=== PATIENT | male | born 1980 | race Hispanic/Latino ===

== ENCOUNTER 2017-10-10 15:27 | Emergency (ER) | payer SELFPAY ==
[~2017-10-10 15:27] MED LIST: BACTRIM DS1 TAB OR; NAPROSYN500 MG OR
[2017-10-10] MEDS ORDERED: ULTRAM50 M1 PO (18:01)
[2017-10-10] MEDS ORDERED: AMOXICILLIN500 MG PO (18:01)
[2017-10-10 18:19] VITALS: BP 131/81
== END 2017-10-10 18:20 | disposition home or self-care (01) | DRG 605 ==
LOC: ED 15:27
PROC: 0HQNXZZ Repair Left Foot Skin, External Approach (ICD-10-PCS; principal; 2017-10-10)
DX: S91.012A Laceration without foreign body, left ankle, initial encounter (principal); W22.8XXA Striking against or struck by other objects, initial encounter; Y93.89 Activity, other specified; Y92.89 Other specified places as the place of occurrence of the external cause

== ENCOUNTER 2017-10-17 14:53 | Emergency (ER) | payer SELFPAY ==
[~2017-10-17] VITALS: Ht 165.1 cm; Wt 65.0 kg
[~2017-10-17 14:53] MED LIST changes: +AMOXICILLIN500 MG PO; +ULTRAM50 M1 PO
[2017-10-17] MEDS ORDERED: BACTRIM DS1 TAB PO (19:43)
[2017-10-17 19:55] VITALS: BP 134/87
== END 2017-10-17 19:55 | disposition home or self-care (01) | DRG 950 ==
LOC: ED 14:53
DX: S91.312D Laceration without foreign body, left foot, subsequent encounter (principal); L08.9 Local infection of the skin and subcutaneous tissue, unspecified; X58.XXXD Exposure to other specified factors, subsequent encounter

== ENCOUNTER 2017-10-18 17:51 | Emergency (ER) | payer SELFPAY ==
[~2017-10-18] VITALS: Ht 165.1 cm; Wt 73.8 kg
[~2017-10-18 17:51] MED LIST changes: +BACTRIM DS1 TAB PO
[2017-10-18 18:37] VITALS: BP 121/79
== END 2017-10-18 18:41 | disposition home or self-care (01) | DRG 950 ==
LOC: ED 17:51
DX: S91.312D Laceration without foreign body, left foot, subsequent encounter (principal); Z48.01 Encounter for change or removal of surgical wound dressing

== ENCOUNTER 2017-10-19 08:05 | Emergency (ER) | payer SELFPAY ==
[~2017-10-19] VITALS: Ht 165.1 cm; Wt 68.0 kg
[2017-10-19 08:41] VITALS: BP 134/77
== END 2017-10-19 08:41 | disposition home or self-care (01) | DRG 950 ==
LOC: ED 08:05
DX: S91.002D Unspecified open wound, left ankle, subsequent encounter (principal); X58.XXXD Exposure to other specified factors, subsequent encounter

== ENCOUNTER 2017-12-23 18:12 | Emergency (ER) | payer SELFPAY ==
[~2017-12-23] VITALS: Ht 165.1 cm; Wt 75.0 kg
[2017-12-23 18:56] LABS: HEMATOCRIT 50.1 % (39.0-50.0); HEMOGLOBIN 16.8 g/dl (14.0-18.0); IMMATURE GRANULOCYTES 0.4 % (0.0-1.0); MEAN CELL VOLUME 92.4 fL CALC (80.0-100.0); MEAN CORPUSCULAR HGB CONC 33.5 g/L CALC (32.0-36.0); NEUT# 2.99 thou/uL (1.82-7.42); RED BLOOD COUNT 5.42 mill/uL (4.70-6.10); RED CELL DISTRI WIDTH 12.9 % (11.5-15.5)
[2017-12-23 19:15] LABS: ALBUMIN 4.3 g/dL (3.2-5.0); ALKALINE PHOSPHATASE 103 u/l (38-126); AMYLASE 70 u/l (30-110); ANION GAP 19 (6-22 (CALC)); BILIRUBIN, TOTAL 0.5 mg/dL (0.0-1.4); BUN 19 mg/dL (9-20); BUN/CREATININE RATIO 23 (12-20 (CALC)); CARBON DIOXIDE 25 mmol/l (22-30); CHLORIDE 103 mmol/l (95-108); CREATININE 0.8 mg/dL (0.7-1.3); GFR > 60 ML/MIN (>=60 (CALC)); GFR FOR AFR.AMER. > 60 ML/MIN (>=60 (CALC)); LIPASE 66 u/l (23-300); POTASSIUM 3.4 mmol/l (3.5-5.1); SGOT/AST 52 u/l (17-59); SGPT/ALT 58 u/l (21-72); SODIUM 143 mmol/l (137-146); TOTAL PROTEIN 8.2 g/dL (6.3-8.2)
[2017-12-23 19:51] LABS: URINE BILIRUBIN - DIPSTICK NEGATIVE (NEGATIVE); URINE BLOOD DIPSTICK SMALL (NEGATIVE); URINE COLOR YELLOW; URINE GLUCOSE - DIPSTICK NEGATIVE (NEGATIVE); URINE KETONE NEGATIVE (NEGATIVE); URINE LEUK ESTERASE NEGATIVE (NEGATIVE); URINE NITRITE - DIPSTICK NEGATIVE (Negative); URINE PH 5.5 (4.5-8.0); URINE PROTEIN - DIPSTICK NEGATIVE (NEG-TRACE); URINE SPECIFIC GRAVITY >=1.030; URINE UROBILINOGEN - DIPSTICK 0.2 E.U./dL (0.2)
[2017-12-23 19:52] LABS: URINE CLARITY CLEAR
[2017-12-23 20:00] LABS: URINE CALCIUM OXALATE CRYSTALS FEW lpf; URINE WBC 0-2 WBC/hpf (0-5)
[2017-12-23 21:30] VITALS: BP 108/73
== END 2017-12-23 21:30 | disposition home or self-care (01) | DRG 392 ==
LOC: ED 18:12
PROVIDERS: Emergency Medicine
DX: R10.12 Left upper quadrant pain (principal)
CPT/HCPCS: Q9967; S0164

== ENCOUNTER 2018-07-03 01:02 | Emergency (ER) | payer SELFPAY ==
[~2018-07-03] VITALS: Ht 165.1 cm; Wt 77.2 kg
[2018-07-03 02:00] VITALS: BP 106/74
== END 2018-07-03 02:00 | disposition home or self-care (01) | DRG 316 ==
LOC: ED 01:02
DX: R58 Hemorrhage, not elsewhere classified (principal)

== ENCOUNTER 2020-01-19 | Emergency (ER) | payer SELFPAY ==
[2020-01-19] MEDS ORDERED: CEPHALEXIN500 M1 PO ×2 (16:59→17:53)
== END 2020-01-19 18:17 | disposition home or self-care (01) | DRG 605 ==
PROC: 0HQGXZZ Repair Left Hand Skin, External Approach (ICD-10-PCS; principal; 2020-01-19)
DX: S61.012A Laceration without foreign body of left thumb without damage to nail, initial encounter (principal); W26.0XXA Contact with knife, initial encounter; Y93.G1 Activity, food preparation and clean up; Y92.89 Other specified places as the place of occurrence of the external cause; Y99.0 Civilian activity done for income or pay

== ENCOUNTER 2020-01-27 | Emergency (ER) | payer SELFPAY ==
[~2020-01-27] MED LIST changes: +CEPHALEXIN500 M1 PO
== END 2020-01-27 17:38 | disposition home or self-care (01) | DRG 950 ==
DX: S61.012D Laceration without foreign body of left thumb without damage to nail, subsequent encounter (principal); X58.XXXD Exposure to other specified factors, subsequent encounter

== ENCOUNTER 2021-03-13 14:50 | Emergency (ER) | payer SELFPAY ==
[~2021-03-13] VITALS: Ht 165.1 cm; Wt 85.0 kg
[2021-03-13 15:32] LABS: URINE BILIRUBIN - DIPSTICK NEGATIVE (NEGATIVE); URINE BLOOD DIPSTICK NEGATIVE (NEGATIVE); URINE COLOR YELLOW; URINE GLUCOSE - DIPSTICK NEGATIVE (NEGATIVE); URINE KETONE NEGATIVE (NEGATIVE); URINE LEUK ESTERASE NEGATIVE (NEGATIVE); URINE PH 5.5 (4.5-8.0); URINE PROTEIN - DIPSTICK NEGATIVE (NEG-TRACE); URINE SPECIFIC GRAVITY >=1.030; URINE UROBILINOGEN - DIPSTICK 0.2 E.U./dL (0.2)
[2021-03-13 15:33] LABS: HEMATOCRIT 51.8 % (39.0-50.0); HEMOGLOBIN 17.3 g/dl (14.0-18.0); IMMATURE GRANULOCYTES 0.6 % (0.0-5.0); MEAN CORPUSCULAR HGB 30.4 pG CALC (26.0-32.0); MEAN CORPUSCULAR HGB CONC 33.4 g/dL CAL (32.0-36.0); NEUT# 3.62 thou/uL (1.82-7.42); RED BLOOD COUNT 5.69 mill/uL (4.70-6.10); RED CELL DISTRI WIDTH 12.4 % (11.5-15.5)
[2021-03-13 15:35] LABS: URINE NITRITE - DIPSTICK NEGATIVE (Negative)
[2021-03-13 16:05] LABS: ALBUMIN 4.5 g/dL (3.2-5.0); ALKALINE PHOSPHATASE 76 u/l (38-126); AMYLASE 73 u/l (30-110); ANION GAP 16 (6-22 (CALC)); BUN 11 mg/dL (9-20); BUN/CREATININE RATIO 14 (12-20 (CALC)); CARBON DIOXIDE 21 mmol/l (22-30); CHLORIDE 105 mmol/l (95-108); CREATININE 0.8 mg/dL (0.7-1.3); GFR > 60 ML/MIN (>=60 (CALC)); GFR FOR AFR.AMER. > 60 ML/MIN (>=60 (CALC)); LIPASE 69 u/l (23-300); POTASSIUM 3.5 mmol/l (3.5-5.1); SGOT/AST 42 u/l (17-59); SODIUM 138 mmol/l (137-146)
[2021-03-13 16:09] LABS: BILIRUBIN, TOTAL 0.8 mg/dL (0.0-1.4)
[2021-03-13] MEDS ORDERED: CEPHALEXIN500 MG PO (17:58)
[2021-03-13 18:14] VITALS: BP 107/64
== END 2021-03-13 18:30 | disposition home or self-care (01) | DRG 603 ==
LOC: ED 14:50
PROVIDERS: Emergency Medicine
DX: L08.9 Local infection of the skin and subcutaneous tissue, unspecified (principal)
CPT/HCPCS: Q9967

== ENCOUNTER 2022-02-16 19:39 | Emergency (ER) | payer SELFPAY ==
[2022-02-16] VITALS (7 sets, daily range): BP systolic 103–137; BP diastolic 76–97
[~2022-02-16] VITALS: Ht 160 cm; Wt 77.0 kg
[~2022-02-16 19:39] MED LIST changes: +CEPHALEXIN500 MG PO
[2022-02-16 20:11] LABS: HEMATOCRIT 49.8 % (39.0-50.0); IMMATURE GRANULOCYTES 0.2 % (0.0-5.0); MEAN CELL VOLUME 93.4 fL CALC (80.0-100.0); MEAN CORPUSCULAR HGB 31.9 pG CALC (26.0-32.0); MEAN CORPUSCULAR HGB CONC 34.1 g/dL CAL (32.0-36.0); NEUT# 6.31 thou/uL (1.82-7.42); RED BLOOD COUNT 5.33 mill/uL (4.70-6.10); RED CELL DISTRI WIDTH 12.6 % (11.5-15.5)
[2022-02-16 20:12] LABS: URINE BILIRUBIN - DIPSTICK NEGATIVE (NEGATIVE); URINE BLOOD DIPSTICK NEGATIVE (NEGATIVE); URINE COLOR YELLOW; URINE GLUCOSE - DIPSTICK NEGATIVE (NEGATIVE); URINE KETONE NEGATIVE (NEGATIVE); URINE LEUK ESTERASE NEGATIVE (NEGATIVE); URINE PH 5.5 (4.5-8.0); URINE PROTEIN - DIPSTICK TRACE mg/dL (NEG-TRACE); URINE SPECIFIC GRAVITY >=1.030; URINE UROBILINOGEN - DIPSTICK 0.2 E.U./dL (0.2)
[2022-02-16 20:14] LABS: URINE NITRITE - DIPSTICK NEGATIVE (Negative)
[2022-02-16 20:26] LABS: ALBUMIN 4.6 g/dL (3.2-5.0); ALKALINE PHOSPHATASE 107 u/l (38-126); AMYLASE 78 u/l (30-110); ANION GAP 16 (6-22 (CALC)); BILIRUBIN, TOTAL 0.7 mg/dL (0.0-1.4); BUN 12 mg/dL (9-20); BUN/CREATININE RATIO 14 (12-20 (CALC)); CARBON DIOXIDE 21 mmol/l (22-30); CHLORIDE 108 mmol/l (95-108); CREATININE 0.8 mg/dL (0.7-1.3); GFR FOR AFR.AMER. > 60 ML/MIN (>=60 (CALC)); GFR OTHER RACES > 60 ML/MIN (>=60 (CALC)); LIPASE 47 u/l (23-300); POTASSIUM 3.8 mmol/l (3.5-5.1); SODIUM 142 mmol/l (137-146); TOTAL PROTEIN 8.3 g/dL (6.3-8.2)
[2022-02-16 20:36] LABS: SGOT/AST 75 u/l (17-59)
== END 2022-02-16 22:22 | disposition home or self-care (01) | DRG 392 ==
LOC: ED 19:39
PROVIDERS: Family Medicine
DX: K59.00 Constipation, unspecified (principal)